=== PATIENT | female | born 2000 | race Hispanic/Latino ===

== ENCOUNTER 2018-03-17 15:37 | Emergency (ER) | payer SELFPAY ==
[2018-03-17] MEDS ORDERED: ONDANSETRON 4 MG/2 ML VIAL ONE (16:16)
[2018-03-17] MEDS ORDERED: NA CHLORIDE 0.9% 1,000 ML ONE (16:16)
[2018-03-17 16:40] LABS: Absolute Monocytes 0.2 K/uL (0.1-1.3); Absolute Neutrophil 14.1 K/uL (1.8-8.0); Basophils % 0.2 % (0-1.3); Eosinophils % 0.4 % (0-4.4); Hematocrit 44.2 % (36.0-45.0); Lymphocytes % 6.4 % (15.3-44.8); MCV 91.2 fL (80-100); MPV 9.2 fL (7.6-11.3); Monocytes % 1.6 % (3.3-12.3); RBC Red Blood Cell Count 4.85 M/uL (3.86-4.86)
[2018-03-17 16:59] LABS: ALT/SGPT 38 U/L (12-78); AST/SGOT 22 U/L (15-37); Albumin 4.7 g/dL (3.4-5.0); Alkaline Phosphatase 78 U/L (45-117); BUN Blood Urea Nitrogen 13 mg/dL (7-18); Bicarbonate 30 mmol/L (21-32); Bilirubin Direct 0.1 mg/dL (0-0.2); Bilirubin Total 0.5 mg/dL (0.2-1.0); Glucose Level 88 mg/dL (74-106); Lipase 114 U/L (73-393); Potassium 3.8 mmol/L (3.5-5.1); Sodium Level 144 mmol/L (136-145)
[2018-03-17 17:03] LABS: Urine Blood TRACE (NEG); Urine Glucose NEGATIVE (NEG); Urine Protein 2+ (NEG); Urine Specific Gravity 1.015 (1.005-1.030); Urine pH >8.5 (5.0-7.0)
[2018-03-17 17:20] LABS: Blood Morphology Comment NOT SEEN (NOT SEEN); Platelet Estimate ADEQ; Urine White Blood Cell Casts OK
--- NOTE | 2018-03-17 17:44 | EDPHYS ---
Physician Documentation [facility] Name: Ruth Rosales Age: 17 yrs Sex: Female : 2000 Arrival Date: 03/17/2018 Time: 15:40 Bed 20 Private MD: Out, of [facility], [facility] ED Physician Miguel Elliott HPI: 03/17 16:15 This 17 yrs old Female presents to ER via Ambulatory with complaints of jr8 Headache, Vomiting, Abdominal Pain. 16:15 The patient presents to the emergency department with nausea, vomiting. Onset: The jr8 symptoms/episode began/occurred acutely, yesterday. Possible causes: bad food exposure. The symptoms are aggravated by nothing. The symptoms are alleviated by nothing. Associated signs and symptoms: Pertinent positives: abdominal pain. Severity of symptoms: At their worst the symptoms were moderate in the emergency department the symptoms are unchanged. The patient has not experienced similar symptoms in the past. The patient has not recently seen a physician. Patient stated that her and her mom had kosovan food last night. Mom had nausea and diarrhea. Patient with upper abdominal pain, n/v. 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 - Social history:: Smoking status: Patient uses tobacco products, denies chronic smoking, but will smoke occasionally, Smoking status: Patient/guardian denies using tobacco. - Ebola Screening: : No symptoms or risks identified at this time. ROS: 16:15 Eyes: Negative for injury, pain, redness, and discharge, ENT: Negative for injury, jr8 pain, and discharge, Neck: Negative for injury, pain, and swelling, Cardiovascular: Negative for chest pain, palpitations, and edema, Respiratory: Negative for shortness of breath, cough, wheezing, and pleuritic chest pain, Back: Negative for injury and pain, MS/Extremity: Negative for injury and deformity, Skin: Negative for injury, rash, and discoloration, Neuro: Negative for headache, weakness, numbness, tingling, and seizure. 16:15 Abdomen/GI: Positive for abdominal pain, nausea and vomiting, Negative for diarrhea, abdominal cramps, abdominal distension, anorexia, dysphagia, hematemesis, black/tarry stool, rectal pain, rectal bleeding, bowel incontinence, flatulence. Exam: 16:15 Eyes: Pupils equal round and reactive to light, extra-ocular motions intact. Lids and jr8 lashes normal. Conjunctiva and sclera are non-icteric and not injected. Cornea within normal limits. Periorbital areas with no swelling, redness, or edema. ENT: Nares patent. No nasal discharge, no septal abnormalities noted. Tympanic membranes are normal and external auditory canals are clear. Oropharynx with no redness, swelling, or masses, exudates, or evidence of obstruction, uvula midline. Mucous membranes moist. Neck: Trachea midline, no thyromegaly or masses palpated, and no cervical lymphadenopathy. Supple, full range of motion without nuchal rigidity, or vertebral point tenderness. No Meningismus. Cardiovascular: Regular rate and rhythm with a normal S1 and S2. No gallops, murmurs, or rubs. Normal PMI, no JVD. No pulse deficits. Respiratory: Lungs have equal breath sounds bilaterally, clear to auscultation and percussion. No rales, rhonchi or wheezes noted. No increased work of breathing, no retractions or nasal flaring. Back: No spinal tenderness. No costovertebral tenderness. Full range of motion. Skin: Warm, dry with normal turgor. Normal color with no rashes, no lesions, and no evidence of cellulitis. MS/ Extremity: Pulses equal, no cyanosis. Neurovascular intact. Full, normal range of motion. Neuro: Awake and alert, GCS 15, oriented to person, place, time, and situation. Cranial nerves II-XII grossly intact. Motor strength 5/5 in all extremities. Sensory grossly intact. Cerebellar exam normal. Normal gait. 16:15 Abdomen/GI: Inspection: abdomen appears normal, Bowel sounds: active, all quadrants, Palpation: soft, in all quadrants, mild abdominal tenderness, in the epigastric area, mass, is not appreciated, rebound tenderness, is not appreciated, voluntary guarding, is elicited in all quadrants, involuntary guarding, is not appreciated, no appreciated organomegaly, Indicators: McBurney's point is not tender, Berumen's sign is negative, Rovsing's sign is negative, Liver: no appreciated palpable abnormalities, tenderness, is not appreciated. Vital Signs: 15:46 BP 112 / 67; Pulse 82; Resp 15; Temp 97.8(TE); Pulse Ox 100% on R/A; Weight 54.43 kg lk1 (R); Height 4 ft. 9 in. (144.78 cm); Pain 8/10; 16:59 BP 97 / 62; Pulse 73; Resp 18; Pulse Ox 100% on R/A; em 18:09 BP 104 / 53; Pulse 68; Resp 16; Pulse Ox 99% on R/A; Pain 0/10; em 15:46 Body Mass Index 25.97 (54.43 kg, 144.78 cm) lk1 MDM: 15:49 Patient medically screened. jr8 17:39 Data reviewed: vital signs, nurses notes, lab test result(s), and as a result, I will jr8 discharge patient. Data interpreted: Pulse oximetry: on room air is 100 %. Interpretation: normal. Counseling: I had a detailed discussion with the patient and/or guardian regarding: the historical points, exam findings, and any diagnostic results supporting the discharge/admit diagnosis, lab results, the need for outpatient follow up, a family practitioner, to return to the emergency department if symptoms worsen or persist or if there are any questions or concerns that arise at home. Response to treatment: the patient's symptoms have markedly improved after treatment, patient is well hydrated. ED course: Reexamined patient . Benign soft abdomen present without tenderness. Feels much better post medication and fluids. Will send home with zofran. Explained to them clear liquids for next 24 hours and then advance as tolerated. If worse or pain localizes to come back for further assessment . 03/17 16:10 Order name: Basic Metabolic Panel; Complete Time: 17:24 8 03/17 16:10 Order name: CBC with Diff; Complete Time: 17:24 [facility] 03/17 16:10 Order name: Creatinine for Radiology; Complete Time: 17:24 03/17 16:10 Order name: Hepatic Function; Complete Time: 17:24 03/17 16:10 Order name: Lipase; Complete Time: 17:04 03/17 16:39 Order name: Urine Dipstick--Ancillary (enter results); Complete Time: 17:24 [facility] 03/17 16:10 Order name: Urine Test (obtain specimen); Complete Time: 16:33 [facility] 03/17 16:10 Order name: IV Saline Lock; Complete Time: 16:33 [facility] 03/17 16:10 Order name: Labs collected and sent; Complete Time: 16:33 03/17 16:10 Order name: Urine Dipstick-Ancillary (obtain specimen); Complete Time: 16:33 [facility] 03/17 16:42 Order name: CBC Smear Scan; Complete Time: 17:24 EDMS Administered Medications: 16:33 Drug: NS 0.9% 1000 ml Route: IV; Rate: 1000 ml; Site: left antecubital; em 17:52 Follow up: IV Status: Completed infusion; IV Intake: 1000ml em 16:40 Drug: Zofran 4 mg Route: IVP; Site: left antecubital; ss 17:52 Follow up: Response: No adverse reaction; Nausea is decreased em Disposition: 18:37 Co-signature as Attending Physician, Miguel Elliott MD. Disposition: 03/17/18 17:43 Discharged to Home. Impression: Gastroenteritis. - Condition is Stable. - Discharge Instructions: Food Poisoning, Viral Gastroenteritis. - Prescriptions for Zofran ODT 4 mg Oral tablet,disintegrating - place 1 tablet by TRANSLINGUAL route every 8 hours; 12 tablet. - Medication Reconciliation Form, Thank You Letter, Antibiotic Education, Prescription Opioid Use form. - Follow up: Private Physician; When: 2 - 3 days; Reason: Recheck today's complaints, Continuance of care, Re-evaluation by your physician. - Problem is new. - Symptoms are resolved. Signatures: Dispatcher [employer] EDMN Massimo Roa, PIN DRAFTING MACHINE OPERATOR PIN DRAFTING MACHINE OPERATOR em Andra Dacosta RN RN ss Roszak, Josh, PA PA jr8 Lydia Padilla RN LETICIA lk1 Miguel Elliott MD MD Corrections: (The following items were deleted from the chart) 18:12 17:43 03/17/2018 17:43 Discharged to Home. Impression: Gastroenteritis. Condition is em Stable. Forms are Medication Reconciliation Form, Thank You Letter, Antibiotic Education, Prescription Opioid Use. Follow up: Private Physician; When: 2 - 3 days; Reason: Recheck today's complaints, Continuance of care, Re-evaluation by your physician. Problem is new. Symptoms are resolved. jr8
--- NOTE | 2018-03-17 17:44 | ER ---
Nurse's Notes [facility] Name: Ruth Rosales Age: 17 yrs Sex: Female : 2000 Arrival Date: 03/17/2018 Time: 15:40 Bed 20 Private MD: Out, [facility] Diagnosis: Gastroenteritis Presentation: 03/17 15:44 Presenting complaint: Mother states: "She ate something last night and can't stop lk1 vomiting. She is dizzy and cold.". Transition of care: patient was not received from another setting of care. Onset of symptoms was March 17, 2018 at 02:00. Risk Assessment: Do you want to hurt yourself or someone else? Patient reports no desire to harm self or others. Initial Sepsis Screen: Does the patient meet any 2 criteria? No. Patient's initial sepsis screen is negative. Does the patient have a suspected source of infection? No. Patient's initial sepsis screen is negative. Care prior to arrival: None. 15:44 Method Of Arrival: Ambulatory [facility] 15:44 Acuity: CHANDLER 3 lk1 Triage Assessment: 16:10 Pain: Pain began 1 day ago. Also complains of nausea. Pain: Complains of pain in em epigastric area. Pain: Pain currently is 8 out of 10 on a pain scale. 16:10 Headache History: Denies prior headaches. General: Appears in no apparent distress. em comfortable, Behavior is calm, cooperative. 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 - Social history:: Smoking status: Patient uses tobacco products, denies chronic smoking, but will smoke occasionally, Smoking status: Patient/guardian denies using tobacco. - Ebola Screening: : No symptoms or risks identified at this time. Screenin:52 Abuse screen: Denies threats or abuse. Nutritional screening: No deficits noted. em Tuberculosis screening: No symptoms or risk factors identified. Fall Risk None identified. Assessment: 16:11 General: Appears in no apparent distress. comfortable, Behavior is calm, cooperative. em Pain: Complains of pain in epigastric area Pain currently is 8 out of 10 on a pain scale. Quality of pain is described as pressure. Neuro: Level of Consciousness is awake, alert, obeys commands, Oriented to person, place, time, situation, Moves all extremities. Gait is steady, Speech is normal, Facial symmetry appears normal. Neuro: Reports headache Denies blurred vision dizziness. Cardiovascular: Capillary refill < 3 seconds. Respiratory: Airway is patent Respiratory effort is even, unlabored, Respiratory pattern is regular, symmetrical. GI: Abdomen is flat, Bowel sounds present X 4 quads. Reports diarrhea, nausea, vomiting. : Urine is cloudy. EENT: No signs and/or symptoms were reported regarding the EENT system. Derm: Skin is intact, Skin is pink, warm \\T\\ dry. Musculoskeletal: Range of motion: intact in all extremities. 16:20 General: The previous assessment is accurate, call light remains within reach. . ss 17:00 Reassessment: Patient appears in no apparent distress at this time. Patient and/or em family updated on plan of care and expected duration. Pain level reassessed. Patient is alert, oriented x 3, equal unlabored respirations, skin warm/dry/pink. 18:12 Reassessment: Patient appears in no apparent distress at this time. Patient and/or em family updated on plan of care and expected duration. Pain level reassessed. Patient is alert, oriented x 3, equal unlabored respirations, skin warm/dry/pink. Vital Signs: 15:46 BP 112 / 67; Pulse 82; Resp 15; Temp 97.8(TE); Pulse Ox 100% on R/A; Weight 54.43 kg lk1 (R); Height 4 ft. 9 in. (144.78 cm); Pain 8/10; 16:59 BP 97 / 62; Pulse 73; Resp 18; Pulse Ox 100% on R/A; em 18:09 BP 104 / 53; Pulse 68; Resp 16; Pulse Ox 99% on R/A; Pain 0/10; em 15:46 Body Mass Index 25.97 (54.43 kg, 144.78 cm) lk1 ED Course: 15:40 Patient arrived in ED. sb2 15:41 Out, [facility] is Private Physician. sb2 15:45 Triage completed. lk1 15:48 Arm band placed on right wrist. lk1 15:49 [facility] jr8 15:49 Miguel Elliott MD is Attending Physician. jr8 15:50 Massimo Roa LVN is Primary Nurse. em 16:30 No provider procedures requiring assistance completed. Initial lab(s) drawn, by me, em sent to lab. Inserted saline lock: 20 gauge in left antecubital area, using aseptic technique. Blood collected. 16:52 Patient has correct armband on for positive identification. Placed in gown. Bed in low em position. Call light in reach. 17:56 IV discontinued, intact, bleeding controlled, No redness/swelling at site. Pressure em dressing applied. Administered Medications: 16:33 Drug: NS 0.9% 1000 ml Route: IV; Rate: 1000 ml; Site: left antecubital; em 17:52 Follow up: IV Status: Completed infusion; IV Intake: 1000ml em 16:40 Drug: Zofran 4 mg Route: IVP; Site: left antecubital; ss 17:52 Follow up: Response: No adverse reaction; Nausea is decreased em Intake: 17:52 IV: 1000ml; Total: 1000ml. em Outcome: 17:43 Discharge ordered by MD. jr8 18:08 Discharged to home ambulatory, with family. em 18:08 Condition: good 18:08 Discharge instructions given to patient, family, Instructed on discharge instructions, follow up and referral plans. medication usage, Demonstrated understanding of instructions, follow-up care, medications, Prescriptions given X 1. 18:12 Patient left the ED. em Signatures: Massimo Roa LVN LVN em Andra Dacosta RN RN ss Roszak, Josh, PA PA jr8 Lydia Padilla RN RN lk1 Sola Sykes2 Corrections: (The following items were deleted from the chart) 16:53 16:53 General: Appears em em
== END 2018-03-17 18:12 | disposition home or self-care (01) ==
LOC: ER 15:37
DX: K52.9 Noninfective gastroenteritis and colitis, unspecified (principal); Z72.0 Tobacco use
CPT/HCPCS: 36415; 80048; 80076; 81003; 83690; 85025; 96361; 96374; 99284; J2405; J7030